=== PATIENT | female | born 1995 ===

== ENCOUNTER 2017-04-02 14:38 | Emergency (ER) | payer OTHER ==
--- NOTE | 2017-04-02 15:32 | OBHP ---
Datetime: 04/02/2017 15:09 IP Adm Impression: , intrauterine IP Chief Complaint Other: Abdominal pain IP Admit Plan: Discharge home Admit Comment, IP Provider: Patient is a 21 year old at 24 weeks 3 days BRYANNA 07/20/17 by LMP c/w 7w2d US presents to L+D for generalized abdominal pain that started yesterday. Patient states presley t she was sitting on the floor when she reached to grab something and abdominal pain started. Abdomin al pain lasted a few hours and has since resolved but wanted to come in today for evaluation. Endorse s +FM, denies CTX, LOF, VB. Denies fevers, chills, N/V, headaches, dizziness, back pain, dysuria, uri nary frequency, changes in bowell habits. Issues: Scant care: last visit was at [facility] at 15 weeks; states that she lost h er job and did not have insurance to continue being seen; patient states that she now has insurance OB Hx: 1. 2011 at 38 weeks? Male 3lbs (baby has cerebral palsy), pt states hid her pregnan cy adn delivered in the ambulance on her way to [facility] 2. Current [employer] Hx: LMP - 07/16/16 Tra[place] - 14 x regular x 3-4 days Denies hx of abnormal pap smears Denies hx of fibroids, ovarian cysts, STIs Allergies: PCN Medical Hx: Denies Medications: PNV Surgical Hx: Denies Social Hx: Denies alcohol, tobacco, drug use; works at pediatric office Family Hx: Denies A/P: 21 year old at 24w3d presents to L+D for abdominal pain , now resolved with materal a nd reassuirng well being 1. Stable, afebrile 2. FHT reassuring 3. Scant care: Strongly advised patient follow up with OBGYN (list of clinics and private offices in the area provided to the patient) 4. labor precautions given 5. Plan d/w attending Thelma Whaley DO PGY-1 agree with above pt seen and examined with resident Pelvic Type - PN: Adequate Extremities - PN: Normal Abdomen - PN: Normal Back - PN: Normal Breast - PN: Normal Lungs - PN: Not Done Heart - PN: Normal Thyroid - PN: Not Done Neurologic - PN: Not Done HEENT - PN: Normal General - PN: Normal FHR - Baseline A Provider: 150 Membranes, Provider: Intact Contraction Comments Provider: irregular Comments, ACOG Physical Exam: VSS Gen: AAOx3, NAD Abd: Soft, gravid, no tenderness to palptaion Ext: No clubbing, cyanosis, edema; no calf tenderness SVE: Closed/thick/high EFM: 145, appropriate for gestational age TOCO: none EGA AdmitDate IP: 24.3 Vital Signs Provider: Reviewed; Within Normal Limits IP Chief Complaint: Other NICHD Decel Fetus A IP Provider: None Dilatation, Provider: 0 Effacement, Provider: 0 Station, Provider: -3 Genitourinary Exam: Normal DTRs - PN: Normal
[2017-04-03 23:21] VITALS: BP 98/59; PULSE 64; RESP 18; TEMP 97.7; O2SAT 99
== END 2017-04-02 15:40 | disposition home or self-care (01) ==
LOC: C.EROB 14:38
DX: O26.892 Other specified pregnancy related conditions, second trimester (principal); Z3A.24 24 weeks gestation of pregnancy; R10.9 Unspecified abdominal pain

== ENCOUNTER 2017-06-16 09:57 | Inpatient (IN) | payer OTHER ==
[2017-06-16 10:14] VITALS: BMI 24.0
[2017-06-16] MEDS ORDERED: Sodium Chloride 0.9% 500 ML IV ONE ×2 (10:14→10:36)
--- NOTE | 2017-06-16 10:23 | OBHP ---
Datetime: 06/16/2017 10:09 IP Adm Impression: , intrauterine IP Admit Plan: Observation/Evaluation Admit Comment, IP Provider: edc 07/20/17 presents w/ c/o n/v since _1am. c/o painful ctxs si nce 6am assoc w/ n/v. denies srom,bleeding, decreased fm or recent coitus. states dr palencia is her dr but last visit was 1mo ago due to insurance issues pmhx _ pshx:denies shx: denies etoh, illicit drug/etoh use medic: pnv allerg: pcn i: 35.1wks ptl p: admit for expectant vd pt d/w dr palencia clinda betameth Pelvic Type - PN: Adequate Extremities - PN: Normal Abdomen - PN: Normal Back - PN: Normal Lungs - PN: Normal Neurologic - PN: Normal HEENT - PN: Normal General - PN: Normal Presentation-Admit: Vertex FHR - Baseline A Provider: 140 Membranes, Provider: Intact Contraction Comments Provider: q1.5-3min EGA AdmitDate IP: 35.1 Vital Signs Provider: Reviewed IP Chief Complaint: Uterine contractions NICHD Variability Prov Fetus A: Moderate 6-25bpm NICHD Accel Fetus A IP Provider: 15X15 FHR Category Provider Fetus A: Category I Dilatation, Provider: 5 Effacement, Provider: 80 Station, Provider: -1 Genitourinary Exam: Normal
--- NOTE | 2017-06-16 10:26 | OBADHP ---
Datetime: 06/16/2017 10:09 Admit Comment, IP Provider: edc 07/20/17 presents w/ c/o n/v since _1am. c/o painful ctxs si nce 6am assoc w/ n/v. denies srom,bleeding, decreased fm or recent coitus. states dr palencia is her dr but last visit was 1mo ago due to insurance issues pmhx _ pshx:denies obhx: x1 child w/ CP shx: denies etoh, illicit drug/etoh use medic: pnv allerg: pcn i: 35.1wks ptl p: admit for expectant vd pt d/w dr palencia clinda betameth Pelvic Type - PN: Adequate Extremities - PN: Normal Abdomen - PN: Normal Back - PN: Normal Lungs - PN: Normal Neurologic - PN: Normal HEENT - PN: Normal General - PN: Normal Presentation-Admit: Vertex FHR - Baseline A Provider: 140 Membranes, Provider: Intact Contraction Comments Provider: q1.5-3min Vital Signs Provider: Reviewed IP Chief Complaint: Uterine contractions NICHD Variability Prov Fetus A: Moderate 6-25bpm NICHD Accel Fetus A IP Provider: 15X15 FHR Category Provider Fetus A: Category I Dilatation, Provider: 5 Effacement, Provider: 80 Station, Provider: -1 Genitourinary Exam: Normal EGA AdmitDate IP: 35.1 IP Adm Impression: , intrauterine IP Admit Plan: Admit to unit; Observation/Evaluation Datetime: 04/13/2017 18:31 IP Chief Complaint Other: cramping Breast - PN: Normal Heart - PN: Normal Thyroid - PN: Normal Comments, ACOG Physical Exam: gravid,non tender ext no edema,no calf ten DTRs - PN: Normal Datetime: 04/02/2017 15:09 NICHD Decel Fetus A IP Provider: None
[2017-06-16] MEDS ORDERED: Sodium Chloride 0.9% 1,000 ML IV ONE ×2 (10:44→10:45)
[2017-06-16] MEDS ORDERED: Betamethasone Soluspan 30 mg/5mL Inj Susp IM ONE (11:00)
[2017-06-16] MEDS ORDERED: Oxytocin 10 Units/ml Inj ONE (11:13)
[2017-06-16 11:16] LABS: BASO % 0.2 % (0.0-2.0); EOS % 0.1 % (0.0-4.0); HEMOGLOBIN 11.8 g/dL (11.0-16.0); LYMPH # 1.6 K/uL (1.0-4.3); LYMPH % 9.9 % (20.0-40.0); MEAN CELL VOLUME 93.6 fL (81.0-99.0); MEAN CORPUSCULAR HEMOGLOBIN 31.6 pg (27.0-31.0); MEAN CORPUSCULAR HGB CONC 33.7 g/dL (33.0-37.0); MONO # 0.7 K/uL (0.0-0.8); MONO % 4.3 % (0.0-10.0); NEUT # 13.9 K/uL (1.8-7.0); NEUT % 85.5 % (50.0-75.0); NRBC % 0.1 % (0.0-2.0); PLATELET COUNT 186 K/uL (130-400); RBC 3.72 Mil/uL (3.80-5.20); RED CELL DISTRIBUTION WIDTH 11.9 % (11.5-14.5); WHITE BLOOD COUNT 16.3 K/uL (4.8-10.8)
--- NOTE | 2017-06-16 11:26 | OBADHP ---
Datetime: 06/16/2017 11:24 FHR - Baseline A Provider: 130 Contraction Comments Provider: irrg NICHD Variability Prov Fetus A: Moderate 6-25bpm NICHD Accel Fetus A IP Provider: 15X15 FHR Category Provider Fetus A: Category I Dilatation, Provider: 10 Effacement, Provider: 100 Station, Provider: 0 Datetime: 06/16/2017 10:09 Admit Comment, IP Provider: edc 07/20/17 presents w/ c/o n/v since _1am. c/o painful ctxs si nce 6am assoc w/ n/v. denies srom,bleeding, decreased fm or recent coitus. states dr palencia is her dr but last visit was 1mo ago due to insurance issues pmhx _ pshx:denies obhx: x1 child w/ CP shx: denies etoh, illicit drug/etoh use medic: pnv allerg: pcn i: 35.1wks ptl p: admit for expectant vd pt d/w dr palencia clinda betameth agree withabove EGA AdmitDate IP: 35.1
--- NOTE | 2017-06-16 11:26 | OBPN ---
Datetime: 06/16/2017 11:24 IP Progress Impression: Normal progression of labor IP Procedures: Sterile Vag Exam Contraction Comments Provider: irrg FHR - Baseline A Provider: 130 IP Progress Note Comment: [facility]. ve 10/100/0 peads present at trhe deliver 9/9 cord gas and placenter send NICHD Accel Fetus A IP Provider: 15X15 FHR Category Provider Fetus A: Category I NICHD Variability Prov Fetus A: Moderate 6-25bpm Dilatation, Provider: 10 Effacement, Provider: 100 Station, Provider: 0 Datetime: 06/16/2017 10:09 Membranes, Provider: Intact Presentation-Admit: Vertex Vital Signs Provider: Reviewed Datetime: 04/02/2017 15:09 NICHD Decel Fetus A IP Provider: None
[2017-06-16] MEDS ORDERED: Oxycodone/Acetaminophen 5/325 mg Tab PO PRN ×2 (11:27)
--- NOTE | 2017-06-16 11:28 | OBDS ---
DELIVERY PERSONNEL Delivery Doctor: Rosy Cash MD (Annotations: Data stored by CPN on behalf of user) MATERNAL INFORMATION Estimated Blood Loss (ml): 250 Provider Comments: babt deliverd in [place]. end [place] ph done peads present no com end clean LABOR SUMMARY EDC: 07/20/2017 00:00 BABY A INFORMATION Shoulder Dystocia : No PRESENTATION/POSITION BABY A Presentation: Cephalic Cephalic Presentation: Vertex Vertex Position: Left Occipital Anterior Breech Presentation: N/A PLACENTA INFORMATION BABY A Placenta Method of Delivery: Spontaneous Placenta Status: Delivered CORD INFORMATION BABY A Nuchal Cord : Around Neck x1, Loose
[2017-06-16 11:29] LABS: SQUAMOUS EPITHIAL 4 /hpf (0-5); URINE BACTERIA RARE (<OCC); URINE BILIRUBIN NEGATIVE (NEGATIVE); URINE BLOOD NEGATIVE (NEGATIVE); URINE CLARITY Clear (Clear); URINE COLOR Yellow (YELLOW); URINE GLUCOSE (UA) NORMAL (Normal); URINE LEUKOCYTE ESTERASE TRACE Leu/uL (Negative); URINE NITRATE NEGATIVE (NEGATIVE); URINE PROTEIN NEGATIVE (NEGATIVE); URINE UROBILINOGEN NORMAL mg/dL (0.2-1.0)
[2017-06-16 11:48] LABS: LYMPHOCYTE 10 % (20-40); MONOCYTE 5 % (0-10); NEUTROPHIL 85 % (50-75); PLATELET ESTIMATE NORMAL (NORMAL); TOTAL CELLS COUNTED 100
[2017-06-16 11:49] LABS: ALB/GLOB RATIO 0.9 (1.0-2.1); ALBUMIN 3.5 g/dL (3.5-5.0); ALT/SGPT 19 U/L (9-52); AST/SGOT 22 U/L (14-36); BLOOD UREA NITROGEN 7 mg/dL (7-17); CALCIUM 7.9 mg/dl (8.6-10.4); GFR AFRICAN-AMERICAN > 60; GFR NON-AFRICAN AMERICAN > 60
[2017-06-16 12:24] LABS: HEPATITIS B SURFACE AG NEGATIVE (NEGATIVE)
[2017-06-16] MEDS ORDERED: Measles, Mumps, and Rubella 0.5 ML VIAL SC ONE (14:00)
[2017-06-17 07:30] LABS: BASO % 0.2 % (0.0-2.0); LYMPH # 2.1 K/uL (1.0-4.3); LYMPH % 10.8 % (20.0-40.0); MEAN CELL VOLUME 93.4 fL (81.0-99.0); MEAN CORPUSCULAR HEMOGLOBIN 31.4 pg (27.0-31.0); MEAN CORPUSCULAR HGB CONC 33.6 g/dL (33.0-37.0); MEAN PLATELET VOLUME 8.7 fL (7.2-11.7); MONO # 1.4 K/uL (0.0-0.8); MONO % 7.5 % (0.0-10.0); NEUT # 15.5 K/uL (1.8-7.0); NEUT % 81.5 % (50.0-75.0); RBC 3.5 Mil/uL (3.80-5.20); RED CELL DISTRIBUTION WIDTH 12.1 % (11.5-14.5)
[2017-06-18 07:59] VITALS: RESP 18
[2017-06-18 08:15] LABS: BASO % 0.2 % (0.0-2.0); EOS % 0.3 % (0.0-4.0); HEMOGLOBIN 10.8 g/dL (11.0-16.0); LYMPH # 3.2 K/uL (1.0-4.3); LYMPH % 26.5 % (20.0-40.0); MEAN CELL VOLUME 93.8 fL (81.0-99.0); MEAN CORPUSCULAR HEMOGLOBIN 32.6 pg (27.0-31.0); MEAN CORPUSCULAR HGB CONC 34.7 g/dL (33.0-37.0); MEAN PLATELET VOLUME 8.6 fL (7.2-11.7); MONO # 0.7 K/uL (0.0-0.8); MONO % 6.2 % (0.0-10.0); NEUT % 66.8 % (50.0-75.0); RBC 3.31 Mil/uL (3.80-5.20)
[2017-06-18] MEDS ORDERED: Influenza Vaccine 60 mcg/0.5 mL SYR (4YR UP) IM ONE (09:52)
[2017-06-19 07:55] VITALS: BP 100/62; TEMP 97.9
[2017-06-19 15:14] VITALS: PULSE 63; O2SAT 97
--- NOTE | 2017-06-19 15:48 | OBPPN ---
Datetime: 06/19/2017 15:38 PP Pain Prov: Within normal limits PP Nausea Prov: Denies PP Flatus Prov: Yes PP BM Prov: Yes PP Breasts Prov: Normal PP Heart Prov: Normal PP Lungs Prov: Normal PP Abdomen/Uterus Prov: Normal PP Lochia Prov: Normal PP Vulva/Perineum Prov: Not Done PP CVA Tenderness Prov: Normal PP Extremities Prov: Normal PP C/S Incision Prov: Not Applicable PP Progress Prov: Normal PP Comments Phys Exam Prov: Abdomen: Flat. Soft, Fundus firm, mobile, non tender; 3 FB below umbilic us. Minimal lochia rubra All other systems reviewed and reviewed PP Impression Prov: Normal progression PP Plan Prov: Discharge PP Progress Note Prov: Asked by Dr. Cash to evaluate patient for discharge home Patient was seen at approximately 0835 hours: received in bed, room 450, . Patient in good spirits. Denies nausea, vomiting; ambulating and voiding without difficulty. Had one significan t episode of uterine "after pains"yesterday, pain scale 7/10; adequately relieved with motrin. P.E.: as above. Thin, in NAD. Awake, alert, oriented to time, person and place. Pleasant and coop erative. FOB present and supportive - Labs today: WBC 12.0; H/H 10.8/31.1 Assessment: 21 y.o. P2, S/P delivery at 35+ weeks. WBC have decreased; H/H stable. Patien t counseled at length re: contraception; most interesetd in the IUD. Patient is clinically stable. Plan: 1) Discharge home 2) See full discharge instructions Vital Signs Provider PP: Reviewed
== END 2017-06-19 11:10 | disposition home or self-care (01) | DRG 372 ==
LOC: C.EROB 09:57 → C.4D 10:02 → C.4M 13:45 → UNDODISIN 06-18 12:03
PROVIDERS: ADMIT Obstetrics & Gynecology; ATTEND Obstetrics & Gynecology
PROC: 10E0XZZ Delivery of Products of Conception, External Approach (ICD-10-PCS; principal; 2017-06-16)
DX: O60.14X0 Preterm labor third trimester with preterm delivery third trimester, not applicable or unspecified (principal); O69.81X0 Labor and delivery complicated by cord around neck, without compression, not applicable or unspecified; Z37.0 Single live birth; Z3A.35 35 weeks gestation of pregnancy

== ENCOUNTER 2017-08-30 14:06 | Emergency (ER) | payer OTHER ==
[2017-08-30 14:06] VITALS: BMI 24.0
[2017-08-30 14:19] VITALS: BP 107/86; PULSE 61; RESP 20; TEMP 98.2; O2SAT 100
[2017-08-30] MEDS ORDERED: Oxycodone/Acetaminophen 5/325 mg Tab PO STA (15:19)
--- NOTE | 2017-08-30 15:23 | C.PDOC ---
History Of Present Illness 21 y/o female presents to the ED complaining of left upper mandible pain with mild swelling of the face for 2 days. Has appointment with dentist tomorrow but states she could no longer manage the pain at home. Patient has been taking Tylenol and Motrin without relief. No fever or chills. Time Seen by Provider: 08/30/17 14:37 Chief Complaint (Nursing): Dental Pain History Per: Patient History/Exam Limitations: no limitations Onset/Duration Of Symptoms: Days (x2) Current Symptoms Are (Timing): Still Present Past Medical History Reviewed: Historical Data, Nursing Documentation, Vital Signs Vital Signs: Last Vital Signs Temp 98.2 F 08/30/17 14:16 Pulse 61 08/30/17 14:16 Resp 20 08/30/17 14:16 BP 107/86 08/30/17 14:16 Pulse Ox 100 08/30/17 15:23 - Medical History PMH: No Chronic Diseases Denies: Depression, Diabetes, HTN Surgical History: No Surg Hx - [facility] Procedures DELIVERY OF PRODUCTS OF CONCEPTION, EXTERNAL APPROACH (06/16/17) Family History: States: Unknown Family Hx - Social History Hx Alcohol Use: No Hx Substance Use: No - Immunization History Hx Tetanus Toxoid Vaccination: No Hx Influenza Vaccination: Yes (03/2017) Hx Pneumococcal Vaccination: No Review Of Systems Except As Marked, All Systems Reviewed And Found Negative. Constitutional: Negative for: Fever, Chills ENT: Positive for: Other (left dental pain (lower mandible) and facial swelling) Physical Exam - Physical Exam Appears: Non-toxic, No Acute Distress Skin: Normal Color, Warm, Dry Head: Atraumatic, Normacephalic Eye(s): bilateral: Normal Inspection, PERRL, EOMI Oral Mucosa: Moist Teeth: Normal Dentition, No Caries, No Tender To Palpation Gingiva: No Erythema, Swelling (swollen gingiva near erruption of wisdom teeth) , No Abscess Neck: Normal ROM, Supple Neurological/Psych: Oriented x3, Normal Speech ED Course And Treatment O2 Sat by Pulse Oximetry: 100 (RA) Pulse Ox Interpretation: Normal Progress Note: Patient given 1 tab Percocet and started on Clindamycin in the ER. Counseled patient regarding physical exam findings, advised to follow up with dentist tomorrow without fail. Will discharge patient home with rx for Clindamycin and Percocet. Disposition Counseled Patient/Family Regarding: Diagnosis, Need For Followup, Rx Given - Disposition Disposition: HOME/ ROUTINE Disposition Time: 15:21 Condition: STABLE Additional Instructions: Follow up with Dentist within 1-2 days. Return to ED if feel worse. Prescriptions: Clindamycin [Cleocin] 150 mg PO Q8 #21 cap oxyCODONE/Acetaminophen [Percocet 5/325 mg Tab] 1 tab PO QID PRN #20 tab PRN Reason: Pain Instructions: Dental Pain Forms: [employer] (Italian) - POA Present On Arrival: None - Clinical Impression Clinical Impression: Pain, dental - PA / DIRECTOR OF HOME HEALTH SERVICES / Resident Statement MD/DO has reviewed & agrees with the documentation as recorded. - Scribe Statement The provider has reviewed the documentation as recorded by the Scribe (Devi Locke) All medical record entries made by the Scribe were at my direction and personally dictated by me. I have reviewed the chart and agree that the record accurately reflects my personal performance of the history, physical exam, medical decision making, and the department course for this patient. I have also personally directed, reviewed, and agree with the discharge instructions and disposition.
[2017-08-30] MEDS ORDERED: Oxycodone/Acetaminophen 5/325 mg Tab ONE (15:31)
== END 2017-08-30 15:33 | disposition home or self-care (01) ==
LOC: C.ER 14:06
DX: K08.89 Other specified disorders of teeth and supporting structures (principal)